=== PATIENT | female | born 1990 | race Two or more races ===

== ENCOUNTER 2023-12-07 18:49 | Emergency (ER) | payer MEDICAID ==
[~2023-12-07] VITALS: Ht 152.4 cm; Wt 74.1 kg
[2023-12-07 18:55] VITALS: BP 138/92; PULSE 136; RESP 18; TEMP 98.3
[2023-12-07 19:35] LABS: ANION GAP 12 mmol/L (8-16); CALCIUM, TOTAL 9.5 mg/dL (8.8-10.5); CARBON DIOXIDE 27 mmol/L (22-29); CHLORIDE 102 mmol/L (98-107); CREATININE 0.83 mg/dL (0.60-1.30); GLOMERULAR FILTR. RATE CALC > 60 mL/min (>60); GLUCOSE,RANDOM 109 mg/dL (70-110); POTASSIUM 4.1 mmol/L (3.5-5.1); SODIUM SERUM 141 mmol/L (136-145); UREA NITROGEN, BLOOD 8 mg/dL (7-18)
[2023-12-07 19:43] LABS: BASOPHILS % (AUTO) 0.1 % (0.0-2.0); EOSINOPHILS % (AUTO) 0.7 % (1.0-6.0); HEMATOCRIT 42.4 % (36-46); HEMOGLOBIN 14.1 g/dL (12.0-16.0); LYMPHOCYTES # (AUTO) 0.7 K/uL (1.0-4.8); LYMPHOCYTES % (AUTO) 6.3 % (22.0-44.0); MEAN CORPUSCULAR HEMOGLOBIN 31.7 pg (26.0-34.0); MEAN CORPUSCULAR HGB CONC 33.4 G/dL (31.0-37.0); MEAN CORPUSCULAR VOLUME 95 fL (80-100); MONOCYTES # (AUTO) 0.5 K/uL (0.1-1.0); MONOCYTES % (AUTO) 3.9 % (2.0-9.0); NEUTROPHILS # (AUTO) 10.3 K/uL (1.8-7.7); PLATELET COUNT (AUTO) 201 K/uL (150-450); RED BLOOD CELL COUNT(AUTO) 4.46 MIL/uL (4.00-5.20); WHITE BLOOD COUNT (AUTO) 11.6 K/uL (4.5-11.0)
[2023-12-07 20:05] LABS: COVID AG,FIA SOURCE NASAL SWAB
[2023-12-07 20:12] LABS: ALCOHOL, BLOOD (SERUM) < 3 mg/dL (0-10)
[2023-12-07 20:28] LABS: SARS-COV2 (COVID) ANTIGEN,FIA Negative (Negative)
== END 2023-12-07 23:02 | disposition still patient (30) ==
LOC: EMS 18:49
DX: F32.A Depression, unspecified (principal); Z53.21 Procedure and treatment not carried out due to patient leaving prior to being seen by health care provider; Z20.822 Contact with and (suspected) exposure to COVID-19
CPT/HCPCS: 87426; 36415; 80048; 85025; G0480

== ENCOUNTER 2025-02-13 19:50 | Emergency (ER) | payer MEDICAID ==
[~2025-02-13] VITALS: Ht 152.4 cm; Wt 70.9 kg
[2025-02-13 22:53] LABS: PLATELET COUNT (AUTO) 201 K/uL (150-450); RED BLOOD CELL COUNT(AUTO) 4.15 MIL/uL (4.00-5.20); RED CELL DISTRIBUTION WIDTH 12.7 % (11.5-14.5); WHITE BLOOD COUNT (AUTO) 11.3 K/uL (4.5-11.0)
[2025-02-13 22:55] LABS: CALCIUM, TOTAL 9.0 mg/dL (8.8-10.5); CREATININE 0.49 mg/dL (0.60-1.30); GLOMERULAR FILTR. RATE CALC > 60 mL/min (>60); GLUCOSE,RANDOM 95 mg/dL (70-110); SODIUM SERUM 140 mmol/L (136-145); UREA NITROGEN, BLOOD 8 mg/dL (7-18)
[2025-02-13 23:11] LABS: ASPARTATE AMINOTRANSFERASE 10 U/L (15-37); HCG,QUANTITATIVE < 1 mIU/mL (0-6); TOTAL PROTEIN, SERUM 7.3 g/dL (6.4-8.2)
[2025-02-14 01:27] LABS: APPEARANCE,URINE CLEAR (CLEAR); GLUCOSE, URINE (UA) TRACE mg/dL (NEGATIVE); LEUKOCYTE ESTERASE ,URINE NEGATIVE (NEGATIVE); OCCULT BLOOD,URINE NEGATIVE (NEGATIVE); SPECIFIC GRAVITIY, URINE 1.005 (1.003-1.030)
[2025-02-14 01:29] LABS: NITRATE,URINE NEGATIVE (NEGATIVE)
[2025-02-14 02:15] VITALS: TEMP 97.705256
[2025-02-14 04:04] VITALS: BP 112/79; PULSE 68; RESP 14; O2SAT 98
[2025-02-14] MEDS ORDERED: POLY17PO62 PO (04:22)
== END 2025-02-14 04:45 | disposition home or self-care (01) ==
LOC: EMS 19:50
DX: K59.00 Constipation, unspecified (principal); N89.8 Other specified noninflammatory disorders of vagina
CPT/HCPCS: 74018; 80048; 80076; 81003; 83690; 84702; 85025; 99284; 36415-L1; 36415-TC